=== PATIENT | male | born 2000 | race Caucasian/White ===

== ENCOUNTER 2021-09-23 12:55 | Emergency (ER) | payer OTHER, BC | END 2021-09-23 16:50 | disposition home or self-care (01) | LOC: CSHERS 12:55 | DX: S90.511A Abrasion, right ankle, initial encounter (principal); M25.572 Pain in left ankle and joints of left foot; V03.90XA Pedestrian on foot injured in collision with car, pick-up truck or van, unspecified whether traffic or nontraffic accident, initial encounter ==

== ENCOUNTER 2021-11-09 22:06 | Emergency (ER) | payer BC ==
[2021-11-09] MEDS ORDERED: Ondansetron ODT 4 MG TAB ONE (23:00)
== END 2021-11-09 22:51 | disposition home or self-care (01) ==
LOC: CSHERS 22:06
DX: B34.9 Viral infection, unspecified (principal); Z20.822 Contact with and (suspected) exposure to COVID-19
CPT/HCPCS: 99284; Q0162; U0003; U0005